=== PATIENT | male | born 1935 | race Caucasian/White ===

== ENCOUNTER → 2016-07-31 | Outpatient (CLI) | payer MEDICARE, OTHER ==
[~2016-07-31] MED LIST: AMLO5TAB22 PO; ATOR20TA42 PO; AXIR30SO TD; CEPH500C PO; HYDR-2951 PO; LISI-360 PO; MULTCAP13 PO; NEBI5 PO; NITR0.4S SL; SALM10002 PO; SAW450CA2 PO; SM A81CH PO; SORB70SO PO; SYNT150T PO; VIAG100T PO; VITA10002 PO; VITA100020 PO; VITA5000 PO
[2016-07-31 10:18] LABS: AUTOMATED NEUTROPHIL # 3.3 TH/MM3 (1.8-7.7); BASOPHIL % 0.6 % (0.0-2.0); EOSINOPHIL # 0.3 TH/MM3 (0-0.4); EOSINOPHIL % 5.6 % (0.0-4.0); HEMATOCRIT 44.4 % (39.0-51.0); HEMO FLAGS DIFF FINAL; LYMPH % 24.2 % (9.0-44.0); LYMPHOCYTE # 1.3 TH/MM3 (1.0-4.8); MEAN CELL VOLUME 92.5 FL (80.0-100.0); MEAN CORPUSCULAR HEMOGLOBIN 30.9 PG (27.0-34.0); MEAN CORPUSCULAR HGB CONC 33.4 % (32.0-36.0); MONO % 7.1 % (0.0-8.0); NEUT % 62.5 % (16.0-70.0); PLATELET COUNT 115 TH/MM3 (150-450); RED CELL DISTRIBUTION WIDTH 15.7 % (11.6-17.2); WHITE BLOOD COUNT 5.4 TH/MM3 (4.0-11.0)
[2016-07-31 10:19] LABS: ALKALINE PHOSPHATASE 81 U/L (45-117); ALT (GPT) 32 U/L (12-78); ANION GAP 9 MEQ/L (5-15); AST (GOT) 25 U/L (15-37); BICARBONATE 27.5 MEQ/L (21.0-32.0); BLOOD UREA NITROGEN 22 MG/DL (7-18); CHLORIDE 105 MEQ/L (98-107); GLOMERULAR FILTRATION RATE 43 ML/MIN (>89); GLUCOSE,FASTING 138 MG/DL (74-99); HDL CHOLESTEROL 36.6 MG/DL (40.0-60.0); LDL CHOLESTEROL 30 MG/DL (0-99); POTASSIUM 4.2 MEQ/L (3.5-5.1); SODIUM (NA) 141 MEQ/L (136-145); TOTAL BILIRUBIN ADULT 1.3 MG/DL (0.2-1.0); URIC ACID 4.9 MG/DL (2.6-7.2)
[2016-07-31 12:23] LABS: HEMOGLOBIN A1a 1.1 %; HEMOGLOBIN A1b 1.9 %; HEMOGLOBIN Ao 83.2 %; HEMOGLOBIN LA1C 2.3 %; HEMOGLOBIN P3 4.4 %
== END ==
LOC: CLAB 07-26 09:04
PROVIDERS: ATTEND Family Medicine
DX: I25.10 Atherosclerotic heart disease of native coronary artery without angina pectoris (principal); K85.90 Acute pancreatitis without necrosis or infection, unspecified; G62.9 Polyneuropathy, unspecified; D69.6 Thrombocytopenia, unspecified; M10.9 Gout, unspecified; E78.5 Hyperlipidemia, unspecified; E03.9 Hypothyroidism, unspecified; I12.9 Hypertensive chronic kidney disease with stage 1 through stage 4 chronic kidney disease, or unspecified chronic kidney disease; N18.3 Chronic kidney disease, stage 3 (moderate); E11.22 Type 2 diabetes mellitus with diabetic chronic kidney disease; Z51.81 Encounter for therapeutic drug level monitoring
CPT/HCPCS: 36415; 80053; 80061; 83036; 84443; 84550; 85025

== ENCOUNTER → 2016-08-24 | Outpatient (CLI) | payer MEDICARE, OTHER ==
[2016-08-24 10:24] LABS: HEMATOCRIT 45.8 % (39.0-51.0); MEAN CELL VOLUME 93.9 FL (80.0-100.0); MEAN CORPUSCULAR HEMOGLOBIN 31.3 PG (27.0-34.0); MEAN CORPUSCULAR HGB CONC 33.3 % (32.0-36.0); PLATELET COUNT 122 TH/MM3 (150-450); RED BLOOD COUNT 4.88 MIL/MM3 (4.50-5.90); RED CELL DISTRIBUTION WIDTH 16.5 % (11.6-17.2); REVIEW FLAG FINAL; WHITE BLOOD COUNT 5.3 TH/MM3 (4.0-11.0)
[2016-08-24 10:34] LABS: BLOOD, URINE NEG (NEG); COMMENT (UR) CULT NOT INDICATED; CULTURE IF INDICATED CULT NOT INDICATED; GLUCOSE,URINE NEG (NEG); HYALINE CAST, URINE 1 /lpf (RARE); KETONE, URINE NEG (NEG); MUCUS URINE FEW /lpf (OCC); NITRITE,URINE NEG (NEG); PH, URINE 5.5 (5.0-8.5); URINE COLOR YELLOW (YELLW/STRAW)
[2016-08-24 10:44] LABS: BICARBONATE 30.6 MEQ/L (21.0-32.0); POTASSIUM 4.2 MEQ/L (3.5-5.1)
== END ==
LOC: CLAB 09:44
PROVIDERS: ATTEND Internal Medicine Nephrology
DX: N18.3 Chronic kidney disease, stage 3 (moderate) (principal)
CPT/HCPCS: 36415; 80069; 81001; 82570; 83970; 84156; 85027

== ENCOUNTER → 2016-10-08 | Outpatient (CLI) | payer MEDICARE, OTHER ==
[2016-10-08 10:50] LABS: HEMATOCRIT 48.3 % (39.0-51.0); MEAN CORPUSCULAR HEMOGLOBIN 30.7 PG (27.0-34.0); MEAN CORPUSCULAR HGB CONC 32.7 % (32.0-36.0); PLATELET COUNT 124 TH/MM3 (150-450); RED BLOOD COUNT 5.13 MIL/MM3 (4.50-5.90); RED CELL DISTRIBUTION WIDTH 16.5 % (11.6-17.2); REVIEW FLAG FINAL
== END ==
LOC: CLAB 09:53
PROVIDERS: ATTEND Urology
DX: E29.1 Testicular hypofunction (principal)
CPT/HCPCS: 36415; 84402; 84403; 85027

== ENCOUNTER → 2016-12-20 | Outpatient (CLI) | payer MEDICARE, OTHER ==
[2016-12-20 09:19] LABS: AUTOMATED NEUTROPHIL # 4.4 TH/MM3 (1.8-7.7); BASOPHIL % 0.4 % (0.0-2.0); EOSINOPHIL # 0.3 TH/MM3 (0-0.4); EOSINOPHIL % 4.1 % (0.0-4.0); HEMATOCRIT 47.8 % (39.0-51.0); HEMO FLAGS DIFF FINAL; LYMPH % 23.6 % (9.0-44.0); LYMPHOCYTE # 1.6 TH/MM3 (1.0-4.8); MEAN CELL VOLUME 92.5 FL (80.0-100.0); MEAN CORPUSCULAR HEMOGLOBIN 29.9 PG (27.0-34.0); MEAN CORPUSCULAR HGB CONC 32.4 % (32.0-36.0); NEUT % 64.9 % (16.0-70.0); PLATELET COUNT 126 TH/MM3 (150-450); RED BLOOD COUNT 5.17 MIL/MM3 (4.50-5.90); RED CELL DISTRIBUTION WIDTH 16.6 % (11.6-17.2); WHITE BLOOD COUNT 6.8 TH/MM3 (4.0-11.0)
[2016-12-20 09:49] LABS: ALKALINE PHOSPHATASE 99 U/L (45-117); ALT (GPT) 32 U/L (12-78); TOTAL BILIRUBIN ADULT 1.4 MG/DL (0.2-1.0); URIC ACID 6.2 MG/DL (2.6-7.2)
[2016-12-20 10:11] LABS: ANION GAP 9 MEQ/L (5-15); AST (GOT) 26 U/L (15-37); BICARBONATE 24.4 MEQ/L (21.0-32.0); BLOOD UREA NITROGEN 27 MG/DL (7-18); CHLORIDE 108 MEQ/L (98-107); GLOMERULAR FILTRATION RATE 38 ML/MIN (>89); GLUCOSE,FASTING 136 MG/DL (74-99); LDL CHOLESTEROL 45 MG/DL (0-99); SODIUM (NA) 141 MEQ/L (136-145)
[2016-12-20 10:15] LABS: POTASSIUM 4.3 MEQ/L (3.5-5.1)
[2016-12-20 15:43] LABS: HEMOGLOBIN A1a 1.1 %; HEMOGLOBIN A1b 2.1 %; HEMOGLOBIN Ao 83.1 %; HEMOGLOBIN LA1C 2.3 %; HEMOGLOBIN P3 4.5 %
== END ==
LOC: CLAB 08:47
PROVIDERS: ATTEND Urology
DX: M10.9 Gout, unspecified (principal); D69.6 Thrombocytopenia, unspecified; I10 Essential (primary) hypertension; E11.9 Type 2 diabetes mellitus without complications; E78.5 Hyperlipidemia, unspecified; E29.1 Testicular hypofunction; Z79.899 Other long term (current) drug therapy
CPT/HCPCS: 36415; 80053; 80061; 83036; 84402; 84403; 84550; 85025

== ENCOUNTER → 2017-02-19 | Outpatient (CLI) | payer MEDICARE, OTHER ==
[2017-02-19 09:59] LABS: HEMATOCRIT 46.9 % (39.0-51.0); MEAN CELL VOLUME 94.8 FL (80.0-100.0); MEAN CORPUSCULAR HEMOGLOBIN 31.4 PG (27.0-34.0); MEAN CORPUSCULAR HGB CONC 33.1 % (32.0-36.0); PLATELET COUNT 127 TH/MM3 (150-450); RED BLOOD COUNT 4.95 MIL/MM3 (4.50-5.90); RED CELL DISTRIBUTION WIDTH 16.4 % (11.6-17.2); REVIEW FLAG FINAL; WHITE BLOOD COUNT 6.1 TH/MM3 (4.0-11.0)
== END ==
LOC: CLAB 09:23
PROVIDERS: ATTEND Urology
DX: E29.1 Testicular hypofunction (principal); Z79.899 Other long term (current) drug therapy
CPT/HCPCS: 36415; 82565; 84402; 84403; 84410; 84520; 85027

== ENCOUNTER → 2017-03-07 | Outpatient (CLI) | payer MEDICARE, OTHER ==
[2017-03-07 09:53] LABS: HEMATOCRIT 46.2 % (39.0-51.0); MEAN CORPUSCULAR HEMOGLOBIN 31.7 PG (27.0-34.0); MEAN CORPUSCULAR HGB CONC 33.4 % (32.0-36.0); PLATELET COUNT 101 TH/MM3 (150-450); RED BLOOD COUNT 4.87 MIL/MM3 (4.50-5.90); RED CELL DISTRIBUTION WIDTH 15.9 % (11.6-17.2); REVIEW FLAG FINAL; WHITE BLOOD COUNT 5.5 TH/MM3 (4.0-11.0)
[2017-03-07 10:15] LABS: BLOOD, URINE NEG (NEG); COMMENT (UR) CULT NOT INDICATED; CULTURE IF INDICATED CULT NOT INDICATED; GLUCOSE,URINE NEG (NEG); KETONE, URINE NEG (NEG); MUCUS URINE FEW /lpf (OCC); NITRITE,URINE NEG (NEG); PH, URINE 5.5 (5.0-8.5); URINE COLOR YELLOW (YELLW/STRAW)
[2017-03-07 10:16] LABS: BICARBONATE 25.8 MEQ/L (21.0-32.0); POTASSIUM 4.1 MEQ/L (3.5-5.1)
== END ==
LOC: CLAB 09:12
PROVIDERS: ATTEND Physician Assistant
DX: N18.3 Chronic kidney disease, stage 3 (moderate) (principal)
CPT/HCPCS: 36415; 80069; 81001; 82570; 83970; 84156; 85027

== ENCOUNTER → 2017-04-29 | Outpatient (CLI) | payer MEDICARE, OTHER ==
[2017-04-29 09:41] LABS: HEMATOCRIT 45.7 % (39.0-51.0); MEAN CELL VOLUME 94.8 FL (80.0-100.0); MEAN CORPUSCULAR HEMOGLOBIN 31.7 PG (27.0-34.0); MEAN CORPUSCULAR HGB CONC 33.4 % (32.0-36.0); PLATELET COUNT 122 TH/MM3 (150-450); RED BLOOD COUNT 4.82 MIL/MM3 (4.50-5.90); RED CELL DISTRIBUTION WIDTH 15.7 % (11.6-17.2); REVIEW FLAG FINAL; WHITE BLOOD COUNT 5.8 TH/MM3 (4.0-11.0)
== END ==
LOC: CLAB 09:19
PROVIDERS: ATTEND Urology
DX: R78.89 Finding of other specified substances, not normally found in blood (principal); E29.1 Testicular hypofunction
CPT/HCPCS: 36415; 82565; 82670; 84403; 84410; 84520; 85027

== ENCOUNTER 2017-06-05 12:01 | Emergency (ER) | payer MEDICARE, OTHER ==
[2017-06-05 12:02] VITALS: BP 128/58; PULSE 44; RESP 16; TEMP 98; O2SAT 98
--- NOTE | 2017-06-05 12:28 | PD ---
HPI Chief Complaint: Cardiac Complaint Time Seen by Provider: 12:10 Travel History International Travel<30 days: No Contact w/Intl Traveler<30days: No Traveled to known affect area: No History of Present Illness HPI 81-year-old male presents to the emergency department for evaluation of bradycardia. Patient states he works out Saturday, Saturday, Saturday at [employer] due to history of 5 vessel cardiac bypass. He states on Saturday after he worked out he took his oxygen level heart rate and his heart rate was 28. He states that today was 41 so he was told to calm the emergency department. First dose he went to Dr. Duvall's office and then he was instructed to come the emergency department. Apparently, Dr. Duvall is here at the hospital and would like to be notified when he arrives. The patient states he gets slightly dizzy when he sits up or stands up, but denies any other complaints. He denies any headaches. No fevers or chills. He says that he pushes on his left lower ribs he will feel pain, but no pain if he is not pushing on the area. No shortness of breath. No abdominal pain. No nausea, vomiting, diarrhea. No exacerbating or alleviating factors. Moderate severity. PFSH Past Medical History Arthritis: Yes Cancer: No Cardiovascular Problems: Yes High Cholesterol: Yes Diabetes: Yes (TYPE 2) Diminished Hearing: Yes Diverticulitis: Yes (DIVERTICULOSIS) Endocrine: Yes (TYPE 2 DIABETIC, HX OF PANCREATITIS) Gastrointestinal Disorders: Yes (H/O PANCREATITIS) Genitourinary: Yes (BPH) Hepatitis: No Hiatal Hernia: No Hypertension: Yes Immune Disorder: No Musculoskeletal: Yes (ARTHRITIS IN LOWER BACK) Neurologic: Yes (NEUROPATHY LEGS/ FEET, HX MIGRAINES) Psychiatric: No Reproductive: No Respiratory: No Thyroid Disease: Yes (HYPOTHYROID) Past Surgical History Abdominal Surgery: Yes (lap. matt) AICD: No Body Medical Devices: stapendectomy SALUD., JULIUS IMPLANT STERNUM Cardiac Surgery: Yes (CARDIAC CATH, 5 VESSEL CABG) Cholecystectomy: Yes Ear Surgery: Yes (stapendectomy salud) Endocrine Surgery: No Eye Surgery: No Genitourinary Surgery: No Joint Replacement: No Oral Surgery: Yes (uvuloplatopharyngoplasty osr turbinectomy salud) Pacemaker: No Thoracic Surgery: Yes (JULIUS IMPLANT STERNAL) Social History Alcohol Use: Yes (OCCAS) Tobacco Use: No Substance Use: No Allergies-Medications (Allergen,Severity, Reaction): Coded Allergies: MRI PRECAUTION (Verified Allergy, Severe, 05/21/13) due to stpendectomy amoxicillin (Unverified Allergy, Severe, 02/12/17) dizziness diphenhydramine (Unverified Allergy, Severe, 02/12/17) affect the prostate if taken too much ezetimibe (Unverified Allergy, Severe, 02/12/17) pancreatitis fenofibrate (Unverified Allergy, Severe, 02/12/17) pancreatitis moxifloxacin (Unverified Allergy, Severe, dizziness and loss of hearing, ) naproxen (Unverified Adverse Reaction, Severe, causes enlarged prostate, ) Uncoded Allergies: ANTIHISTIMINES (Allergy, Mild, 09/21/10) enlarged prostate vytorin (Adverse Reaction, Severe, pancreatitis, 09/21/10) Reported Meds & Prescriptions Reported Meds & Active Scripts Active Reported Vitamin B12 (Cyanocobalamin) 1,000 Mcg Tab 1,250 Mcg PO DAILY Vitamin D-3 (Cholecalciferol) 5,000 Unit Tab 5,000 Unit PO 3X/ WEEK Saw Samson (Saw Samson (Serenoa Repens)) 450 Mg Cap 1 Tab PO DAILY [place] Oil (Nutritional Supplements) 1,000 Mg Cap 1 Cap PO DAILY Multi Complete (Multiple Vitamins W/ Minerals) Complete Cap 1 Tab PO DAILY Viagra (Sildenafil Citrate) 100 Mg Tab 100 Mg PO DIRECTED Lortab 5/500 Tab (Acetaminophen/Hydrocodone Bitart) 1 Tab Tab 1 Tab PO DIRECTED Cephalexin (Cephalexin Monohydrate) 500 Mg Cap 500 Mg PO DIRECTED Sorbitol (Sorbitol (Laxative)) 70 % Aura 70 % PO DIRECTED Nitrostat (Nitroglycerin) 0.4 Mg Sub 0.4 Mg SL DIRECTED Axiron (Testosterone) 30 Mg/Act Aura 60 Mg TD DAILY Lipitor (Atorvastatin Calcium) 20 Mg Tab 20 Mg PO HS Amlodipine Besylate 5 Mg Tab 5 Mg PO DAILY Lisinopril 10 Mg Tab 10 Mg PO DAILY Bystolic 5 Mg Tab (Nebivolol) 5 Mg Tab 5 Mg PO DAILY Synthroid (Levothyroxine Sodium) 150 Mcg Tab 150 Mcg PO DAILY Vitamin B-12 (Cyanocobalamin) 1,000 Mcg Inj 1,000 Mcg PO DAILY Aspirin 81 Mg Tab 81 Mg PO DAILY Review of Systems Except as stated in HPI: all other systems reviewed are Neg Physical Exam Narrative GENERAL: Well-nourished, well-developed female patient, ambulatory. Afebrile. SKIN: Focused skin assessment warm/dry. HEAD: Normocephalic. Atraumatic. EYES: No scleral icterus. No injection or drainage. NECK: Supple, trachea midline. No JVD or lymphadenopathy. CARDIOVASCULAR: Regular rhythm without murmurs, gallops, or rubs. Patient is bradycardic with heart rate in the 50s. RESPIRATORY: Breath sounds equal bilaterally. No accessory muscle use. Lungs sounds are clear to auscultation GASTROINTESTINAL: Abdomen soft, non-tender, nondistended. MUSCULOSKELETAL: No cyanosis, or edema. BACK: Nontender without obvious deformity. No CVA tenderness. Data Data Last Documented VS Vital Signs Date Time Temp Pulse Resp B/P (MAP) Pulse Ox O2 Delivery O2 Flow Rate FiO2 06/05/17 12:24 65 99 Room Air 06/05/17 12:02 98.0 16 128/58 (81) Orders Orders Electrocardiogram (06/05/17 12:21) Basic Metabolic Panel (Bmp) (06/05/17 12:21) Ckmb (Isoenzyme) Profile (06/05/17 12:21) Complete Blood Count With Diff (06/05/17 12:21) Magnesium (Mg) (06/05/17 12:21) Prothrombin Time / Inr (Pt) (06/05/17 12:21) Act Partial Throm Time (Ptt) (06/05/17 12:21) Troponin I (06/05/17 12:21) Chest, Single Ap (06/05/17 12:21) Ecg Monitoring (06/05/17 12:21) Bilateral Bp Monitoring (06/05/17 12:21) Iv Access Insert/Monitor (06/05/17 12:21) Oximetry (06/05/17 12:21) Oxygen Administration (06/05/17 12:21) Sodium Chloride 0.9% Flush (Ns Flush) (06/05/17 12:30) Labs Laboratory Tests Test 06/05/17 12:34 White Blood Count 7.2 TH/MM3 Red Blood Count 4.68 MIL/MM3 Hemoglobin 14.8 GM/DL Hematocrit 44.0 % Mean Corpuscular Volume 93.9 FL Mean Corpuscular Hemoglobin 31.6 PG Mean Corpuscular Hemoglobin Concent 33.6 % Red Cell Distribution Width 15.5 % Platelet Count 132 TH/MM3 Mean Platelet Volume 8.5 FL Neutrophils (%) (Auto) 69.1 % Lymphocytes (%) (Auto) 20.5 % Monocytes (%) (Auto) 6.8 % Eosinophils (%) (Auto) 3.2 % Basophils (%) (Auto) 0.4 % Neutrophils # (Auto) 4.9 TH/MM3 Lymphocytes # (Auto) 1.5 TH/MM3 Monocytes # (Auto) 0.5 TH/MM3 Eosinophils # (Auto) 0.2 TH/MM3 Basophils # (Auto) 0.0 TH/MM3 CBC Comment DIFF FINAL Differential Comment Prothrombin Time 10.6 SEC Prothromb Time International Ratio 1.0 RATIO Activated Partial Thromboplast Time 24.3 SEC Blood Urea Nitrogen 29 MG/DL Creatinine 1.62 MG/DL Random Glucose 117 MG/DL Calcium Level 9.1 MG/DL Magnesium Level 2.2 MG/DL Sodium Level 141 MEQ/L Potassium Level 4.2 MEQ/L Chloride Level 109 MEQ/L Carbon Dioxide Level 26.2 MEQ/L Anion Gap 6 MEQ/L Estimat Glomerular Filtration Rate 41 ML/MIN Total Creatine Kinase 40 U/L Troponin I LESS THAN 0.02 NG/ML MDM Medical Decision Making Medical Screen Exam Complete: Yes Emergency Medical Condition: Yes Medical Record Reviewed: Yes Interpretation(s) chest x-ray - CONCLUSION: 1. Mild cardiomegaly 2. No evidence of acute process. 3. Status post CABG. Differential Diagnosis Symptomatic bradycardia versus heart block versus ACS Narrative Course 81-year-old male presents to the emergency department for evaluation of bradycardia. He was sent here by Dr. Duvall's office. EKG here shows sinus bradycardia with first-degree AV block, occasional PVCs. CBC, BMP, CK, troponin , magnesium, PTT, PT/INR, chest x-ray are ordered and pending. I spoke to Dr. 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 Reports patient has history of PVCs although sinus bradycardia. He was have the office call the patient to schedule a Holter monitor, echocardiogram, stress test. He states the patient can be discharged after cardiac workup is complete to follow-up in the office. CBC shows no acute abnormal. BMP shows elevated BUN of 29, creatinine 1.62. This appears to be the patient's baseline. CK is 40. Troponin is less than 0.02. Magnesium is 2.2. Coags are unremarkable. Chest x-ray shows Mild cardiomegaly; No evidence of acute process; Status post CABG. I discussed plan with the patient and his . They are to return here for any worsening of symptoms. They agree to plan. Diagnosis Primary Impression: Bradycardia by electrocardiogram Referrals: Artemio Duvall MD Patient Instructions: Bradycardia (ED), General Instructions Additional Instructions: Dr. Duvall's office will be contacting you to set up Holter monitoring, further testing. Return to the emergency department for any acute, worsening of symptoms. Med/Other Pt SpecificInfo: No Change to Meds Disposition: 01 DISCHARGE HOME Condition: Stable Dilma Mcduffie JERRELL Jun 05, 2017 12:28
[2017-06-05] MEDS ORDERED: SODIUM CHLORIDE 0.9% FLUSH 10 ML FLUSH IVF PRN (12:30)
[2017-06-05 12:55] LABS: AUTOMATED NEUTROPHIL # 4.9 TH/MM3 (1.8-7.7); BASOPHIL % 0.4 % (0.0-2.0); EOSINOPHIL # 0.2 TH/MM3 (0-0.4); EOSINOPHIL % 3.2 % (0.0-4.0); HEMO FLAGS DIFF FINAL; LYMPH % 20.5 % (9.0-44.0); LYMPHOCYTE # 1.5 TH/MM3 (1.0-4.8); MEAN CELL VOLUME 93.9 FL (80.0-100.0); MEAN CORPUSCULAR HEMOGLOBIN 31.6 PG (27.0-34.0); MEAN CORPUSCULAR HGB CONC 33.6 % (32.0-36.0); MONO % 6.8 % (0.0-8.0); NEUT % 69.1 % (16.0-70.0); PLATELET COUNT 132 TH/MM3 (150-450); RED BLOOD COUNT 4.68 MIL/MM3 (4.50-5.90); RED CELL DISTRIBUTION WIDTH 15.5 % (11.6-17.2); WHITE BLOOD COUNT 7.2 TH/MM3 (4.0-11.0)
[2017-06-05 13:02] LABS: APTT (PATIENT) 24.3 SEC (24.3-30.1); PROTHROMBIN TIME - PATIENT 10.6 SEC (9.8-11.6)
--- NOTE | 2017-06-05 13:44 | RADRPT ---
EXAM DATE/TIME: 06/05/2017 12:52 [facility] COMPARISON: CHEST SINGLE AP, October 25, 2010, 4:00. INDICATIONS : Bradycardia and slight dizziness. MEDICAL HISTORY : Cardiovascular disease. SURGICAL HISTORY : CABG. ENCOUNTER: Subsequent ACUITY: 2 days PAIN SCORE: 0/10 LOCATION: Bilateral chest FINDINGS: The heart is mildly enlarged. Postsurgical changes from CABG are noted. Lungs are clear without evidence of acute congestion or airspace disease. CONCLUSION: 1. Mild cardiomegaly 2. No evidence of acute process. 3. Status post CABG. Clyde Guzman MD on June 05, 2017 at 13:41 Board Certified Radiologist. This report was verified electronically.
[2017-06-05 13:49] LABS: ANION GAP 6 MEQ/L (5-15); BICARBONATE 26.2 MEQ/L (21.0-32.0); BLOOD UREA NITROGEN 29 MG/DL (7-18); CHLORIDE 109 MEQ/L (98-107); GLOMERULAR FILTRATION RATE 41 ML/MIN (>89); MAGNESIUM 2.2 MG/DL (1.5-2.5); POTASSIUM 4.2 MEQ/L (3.5-5.1); SODIUM (NA) 141 MEQ/L (136-145)
[2017-06-05 14:04] LABS: CREATINE KINASE 40 U/L (39-308)
[2017-06-05 14:58] VITALS: BP 157/68
--- NOTE | 2017-06-06 17:07 | EKG ---
Date Performed: 06/05/2017 Time Performed: 12:15:15 PTAGE: 81 years EKG: SINUS BRADYCARDIA WITH FIRST DEGREE AV BLOCK WITH OCCASIONAL VENTRICULAR PREMATURE COMPLEXE S ANTEROSEPTAL MYOCARDIAL INFARCTION Myocardial infarction-age undetermiate. ABNORMAL ECG PREVIOUS TRACING : 09/26/2010 04.15 DOCTOR: Isael Johnson Interpretating Date/Time 06/06/2017 17:05:37
== END 2017-06-05 15:00 | disposition home or self-care (01) ==
LOC: NEPC 12:01
DX: R00.1 Bradycardia, unspecified (principal); E03.9 Hypothyroidism, unspecified; E11.9 Type 2 diabetes mellitus without complications; E78.00 Pure hypercholesterolemia, unspecified; I10 Essential (primary) hypertension
CPT/HCPCS: 71010; 80048; 82550; 83735; 84484; 85025; 85610; 85730; 93005

== ENCOUNTER → 2017-06-20 | Outpatient (CLI) | payer MEDICARE, OTHER ==
[2017-06-20 09:31] LABS: BASOPHIL % 0.7 % (0.0-2.0); EOSINOPHIL # 0.3 TH/MM3 (0-0.4); EOSINOPHIL % 4.3 % (0.0-4.0); HEMO FLAGS DIFF FINAL; LYMPH % 24.3 % (9.0-44.0); LYMPHOCYTE # 1.5 TH/MM3 (1.0-4.8); MEAN CELL VOLUME 93.4 FL (80.0-100.0); MEAN CORPUSCULAR HEMOGLOBIN 32.3 PG (27.0-34.0); MEAN CORPUSCULAR HGB CONC 34.5 % (32.0-36.0); MONO % 6.4 % (0.0-8.0); NEUT % 64.3 % (16.0-70.0); PLATELET COUNT 118 TH/MM3 (150-450); RED BLOOD COUNT 4.39 MIL/MM3 (4.50-5.90); RED CELL DISTRIBUTION WIDTH 15.3 % (11.6-17.2); WHITE BLOOD COUNT 6.2 TH/MM3 (4.0-11.0)
[2017-06-20 09:56] LABS: ANION GAP 6 MEQ/L (5-15); AST (GOT) 22 U/L (15-37); BICARBONATE 26.5 MEQ/L (21.0-32.0); BLOOD UREA NITROGEN 31 MG/DL (7-18); CHLORIDE 108 MEQ/L (98-107); GLOMERULAR FILTRATION RATE 43 ML/MIN (>89); GLUCOSE,FASTING 126 MG/DL (74-99); POTASSIUM 4.2 MEQ/L (3.5-5.1); SODIUM (NA) 140 MEQ/L (136-145)
[2017-06-20 09:58] LABS: ALT (GPT) 41 U/L (12-78); URIC ACID 5.3 MG/DL (2.6-7.2)
[2017-06-20 10:00] LABS: ALKALINE PHOSPHATASE 88 U/L (45-117); HDL CHOLESTEROL 43.8 MG/DL (40.0-60.0); LDL CHOLESTEROL 34 MG/DL (0-99); LDL CHOLESTEROL DIRECT 48 MG/DL (0-99)
[2017-06-20 10:21] LABS: MICRO ALBUMIN RANDOM URINE RAW 27.5 MG/L (0.0-30.0)
[2017-06-20 14:10] LABS: HEMOGLOBIN A1a 0.8 %; HEMOGLOBIN Ao 82.7 %; HEMOGLOBIN LA1C 2.3 %; HEMOGLOBIN P3 4.4 %
== END ==
LOC: CLAB 09:01
PROVIDERS: ATTEND Family Medicine
DX: I10 Essential (primary) hypertension (principal); E11.9 Type 2 diabetes mellitus without complications; E78.5 Hyperlipidemia, unspecified; M10.9 Gout, unspecified
CPT/HCPCS: 36415; 80053; 80061; 82043; 83036; 83721; 84550; 85025

== ENCOUNTER → 2017-08-29 | Outpatient (CLI) | payer MEDICARE, OTHER ==
[2017-08-29 09:27] LABS: BILIRUBIN, URINE NEG (NEG); BLOOD, URINE NEG (NEG); GLUCOSE,URINE NEG (NEG); HYALINE CAST, URINE 1 /lpf (RARE); KETONE, URINE NEG (NEG); MUCUS URINE FEW /lpf (OCC); NITRITE,URINE NEG (NEG); PH, URINE 5.5 (5.0-8.5); URINE COLOR YELLOW (YELLW/STRAW); URINE LEUKOCYTE ESTERASE NEG (NEG)
[2017-08-29 09:44] LABS: HEMOGLOBIN 13.9 GM/DL (13.0-17.0); MEAN CELL VOLUME 93.5 FL (80.0-100.0); MEAN CORPUSCULAR HEMOGLOBIN 31.7 PG (27.0-34.0); MEAN CORPUSCULAR HGB CONC 33.9 % (32.0-36.0); MEAN PLATELET VOLUME 8.1 FL (7.0-11.0); PLATELET COUNT 122 TH/MM3 (150-450); RED BLOOD COUNT 4.39 MIL/MM3 (4.50-5.90); RED CELL DISTRIBUTION WIDTH 15.7 % (11.6-17.2); WHITE BLOOD COUNT 4.8 TH/MM3 (4.0-11.0)
[2017-08-29 10:03] LABS: ALBUMIN 3.7 GM/DL (3.4-5.0); BICARBONATE 26.7 MEQ/L (21.0-32.0); CALCIUM 9.3 MG/DL (8.5-10.1); CREATININE 1.52 MG/DL (0.60-1.30)
[2017-08-29 10:04] LABS: PHOSPHORUS 2.9 MG/DL (2.5-4.9)
== END ==
LOC: CLAB 09:02
PROVIDERS: ATTEND Physician Assistant
DX: N18.3 Chronic kidney disease, stage 3 (moderate) (principal); E55.9 Vitamin D deficiency, unspecified
CPT/HCPCS: 36415; 80069; 81001; 82306; 82570; 83970; 84156; 85027

== ENCOUNTER → 2017-10-29 | Outpatient (CLI) | payer MEDICARE, OTHER ==
[2017-10-29 09:53] LABS: AUTOMATED NEUTROPHIL # 3.8 TH/MM3 (1.8-7.7); BASOPHIL % 0.7 % (0.0-2.0); EOSINOPHIL # 0.2 TH/MM3 (0-0.4); HEMATOCRIT 39.8 % (39.0-51.0); HEMOGLOBIN 13.4 GM/DL (13.0-17.0); LYMPH % 20.5 % (9.0-44.0); LYMPHOCYTE # 1.2 TH/MM3 (1.0-4.8); MEAN CORPUSCULAR HEMOGLOBIN 31.3 PG (27.0-34.0); MEAN CORPUSCULAR HGB CONC 33.6 % (32.0-36.0); MONOCYTE # 0.4 TH/MM3 (0-0.9); NEUT % 67.8 % (16.0-70.0); PLATELET COUNT 118 TH/MM3 (150-450); RED BLOOD COUNT 4.28 MIL/MM3 (4.50-5.90); RED CELL DISTRIBUTION WIDTH 15.2 % (11.6-17.2); WHITE BLOOD COUNT 5.6 TH/MM3 (4.0-11.0)
[2017-10-29 10:22] LABS: ALBUMIN 3.6 GM/DL (3.4-5.0); ALT (GPT) 41 U/L (12-78); AST (GOT) 20 U/L (15-37); BICARBONATE 27.6 MEQ/L (21.0-32.0); BLOOD UREA NITROGEN 28 MG/DL (7-18); CALCIUM 8.9 MG/DL (8.5-10.1); CHLORIDE 108 MEQ/L (98-107); CHOLESTEROL 98 MG/DL (120-200); CREATININE 1.49 MG/DL (0.60-1.30); GLOMERULAR FILTRATION RATE 45 ML/MIN (>89); GLUCOSE,FASTING 131 MG/DL (74-99); SODIUM (NA) 142 MEQ/L (136-145)
[2017-10-29 10:25] LABS: ALKALINE PHOSPHATASE 92 U/L (45-117); CHOLESTEROL/ HDL RATIO 2.61 RATIO; HDL CHOLESTEROL 37.5 MG/DL (40.0-60.0); LDL CHOLESTEROL 35 MG/DL (0-99); LDL CHOLESTEROL DIRECT 53 MG/DL (0-99); TOTAL BILIRUBIN ADULT 1.1 MG/DL (0.2-1.0); TOTAL PROTEIN 6.7 GM/DL (6.4-8.2); TRIGLYCERIDES 126 MG/DL (42-150)
[2017-10-29 17:23] LABS: HEMOGLOBIN A1C 6.8 % (4.3-6.0)
[2017-11-01 01:35] LABS: FREE TESTOSTERONE 8.31 ng/dL (2.88-10.5)
== END ==
LOC: CLAB 09:08
PROVIDERS: ATTEND Family Medicine
DX: I10 Essential (primary) hypertension (principal); E11.9 Type 2 diabetes mellitus without complications; E78.5 Hyperlipidemia, unspecified; M10.9 Gout, unspecified; E29.1 Testicular hypofunction; R97.20 Elevated prostate specific antigen [PSA]
CPT/HCPCS: 36415; 80053; 80061; 83036; 83721; 84153; 84403; 84410; 84550; 85025